=== PATIENT | male | born 1985 | race African-American/Black ===

== ENCOUNTER 2017-11-07 17:28 | Emergency (ER) | payer SELFPAY ==
[~2017-11-07] VITALS: Ht 172.7 cm; Wt 66.0 kg
[2017-11-07 18:24] VITALS: BP 120/73
[2017-11-07] MEDS ORDERED: ACETAMINOPHEN 325MG TABLET PO ONE (20:30)
== END 2017-11-07 20:33 | disposition home or self-care (01) ==
LOC: ER 19:03
DX: J02.9 Acute pharyngitis, unspecified (principal); F17.210 Nicotine dependence, cigarettes, uncomplicated; F12.90 Cannabis use, unspecified, uncomplicated
CPT/HCPCS: 99283; Z7610